=== PATIENT | female | born 1965 | race Caucasian/White ===

== ENCOUNTER → 2018-12-17 | Day surgery (SDC) | payer OTHER ==
[2018-12-13 14:05] LABS: BASOPHILS % 0.4 % (0.0-1.0); EOSINOPHILS # (AUTO) 0.2 (0.0-0.4); EOSINOPHILS % 1.7 % (0.0-6.0); HEMATOCRIT 40.9 % (34.2-44.1); HEMOGLOBIN 13.6 g/dL (12.0-16.0); LYMPHOCYTES # (AUTO) 2.7 (1.0-3.2); LYMPHOCYTES % 25.3 % (18.0-39.1); MEAN CORPUSCULAR HEMOGLOBIN 30.2 pg (28-32); MEAN CORPUSCULAR HGB CONC 33.3 g/dL (31-35); MEAN CORPUSCULAR VOLUME 90.7 fL (81-99); MONOCYTES # (AUTO) 0.8 (0.2-0.8); MONOCYTES % 7.3 % (4.4-11.3); NEUTROPHILS # (AUTO) 6.8 (2.1-6.9); NEUTROPHILS % 64.5 % (38.7-80.0); PLATELET COUNT 303 x10e3/uL (140-360); RED BLOOD COUNT 4.51 x10e6/uL (3.6-5.1); RED CELL DISTRIBUTION WIDTH 12.5 % (11.7-14.4)
[2018-12-13 14:20] LABS: ALANINE AMINOTRANSFERASE 20 IU/L (0-55); ALBUMIN 3.5 g/dL (3.5-5.0); ALKALINE PHOSPHATASE 71 IU/L (40-150); ANION GAP 10.7 mmol/L (8-16); BLOOD UREA NITROGEN 14 mg/dL (7-26); BUN/CREATININE RATIO 17 (6-25); CARBON DIOXIDE 27 mmol/L (22-29); CHLORIDE 103 mmol/L (98-107); CREATININE, SERUM 0.81 mg/dL (0.57-1.11); EST GLOMERULAR FILTRATION RATE > 60 ML/MIN (60-); GLUCOSE 96 mg/dL (74-118); POTASSIUM 4.7 mmol/L (3.5-5.1); SODIUM 136 mmol/L (136-145)
[~2018-12-17] VITALS: Ht 167.6 cm; Wt 78.5 kg
[~2018-12-17] MED LIST: ALPRAZOLAM 0.5 MG TAB ONE; DIPHENHYDRAMINE HCL 25 MG CAP ONE; FENTANYL CITRATE/PF 100MCG/2 ML INJ ONE; HEPARIN SOD (PORCINE) 1000 UNIT/ML 30ML ONE; HEPARIN SOD/SOD CHLORIDE 2,000 ML ONE; INDERAL XL80 MG PO; IOPAMIDOL 370 MG/ML 200 ML INFUS..BTL INJ ONE; LIDOCAINE HCL 2% LOCAL 20 ML VIAL ONE; MIDAZOLAM HCL 2 MG/2 ML VIAL ONE; NITROGLYCERIN/D5W 200 MCG/ML 250 ML ONE; SODIUM CHLORIDE 0.9% 1000ML 1,000 ML ONE; TOPAMAX25 MG PO; VERAPAMIL HCL 2.5 MG/ML 2 ML VIAL ONE; WELLBUTRIN SR150 MG PO
--- OUTSIDE RECORDS SUMMARY | 2018-12-17 06:32 | XMS REPORT ---
Author Author [facility] Address Unknown Phone Unavailable Care Team Providers Care Duplicate Maker Name Role Phone Unavailable Unavailable Payers Payer Name Policy Type Policy Number Effective Date Expiration Date Problems This patient has no known problems. Allergies, Adverse Reactions, Alerts This patient has no known allergies or adverse reactions. Medications This patient has no known medications. Encounters Start Date/Time End Date/Time Encounter Type Admission Type Attending [facility] Care Department Encounter ID 2018-12-05 19:33:00 2018-12-05 19:33:00 Emergency E [id number]
[2018-12-17 07:02] VITALS: BP 125/82
[2018-12-17 08:15] VITALS: BP 112/72
[2018-12-17 08:30] VITALS: BP 100/68
[2018-12-17 08:45] VITALS: BP 103/65
[2018-12-17 09:00] VITALS: BP 100/67
[2018-12-17 09:15] VITALS: BP 99/66
--- NOTE | 2018-12-17 12:48 | Operative Report ---
DATE OF PROCEDURE: 12/17/2018 SURGEON: Dereck Swift MD INDICATIONS: Coronary artery disease, abnormal stress test. PROCEDURES PERFORMED: 1. Left heart catheterization, selective coronary angiography, left ventriculography. 2. Deployment of right wrist TR band. COMPLICATIONS: None. RECOMMENDATIONS: Medical therapy. DESCRIPTION OF PROCEDURE: Access obtained in the right radial artery. A 5-Stateless sheath was placed. Coronary angiography demonstrated 50% stenosis in the proximal left anterior descending artery. Remaining coronary artery had mild coronary artery disease, less than 20% luminal stenosis. Excellent flow. No critical stenosis or occlusions. No intervention deemed necessary. LV ejection fraction 65%. LV end-diastolic pressure of 10. No gradient across the aortic valve on pullback. Right wrist guide sheath removed. TR band applied. The patient discharged home the same day. Dereck Swift MD KSB/MODL /[id number]
== END | disposition home or self-care (01) ==
LOC: CATH LAB 06:30
PROVIDERS: ATTEND Internal Medicine Interventional Cardiology
DX: I25.10 Atherosclerotic heart disease of native coronary artery without angina pectoris (principal); Z01.812 Encounter for preprocedural laboratory examination; R94.39 Abnormal result of other cardiovascular function study; I10 Essential (primary) hypertension; G43.919 Migraine, unspecified, intractable, without status migrainosus; Z83.3 Family history of diabetes mellitus; Z82.49 Family history of ischemic heart disease and other diseases of the circulatory system; Z82.3 Family history of stroke; E78.49 Other hyperlipidemia; G43.709 Chronic migraine without aura, not intractable, without status migrainosus
CPT/HCPCS: 36415; 80053; 85025; 93458; C1769; C1887; J1644; J2001; J2250; J3010; J7030; Q9967; 99152

== ENCOUNTER → 2020-09-01 | Outpatient (CLI) | payer OTHER ==
[~2020-09-01] MED LIST changes: -ALPRAZOLAM 0.5 MG TAB ONE; -DIPHENHYDRAMINE HCL 25 MG CAP ONE; -FENTANYL CITRATE/PF 100MCG/2 ML INJ ONE; -HEPARIN SOD (PORCINE) 1000 UNIT/ML 30ML ONE; -HEPARIN SOD/SOD CHLORIDE 2,000 ML ONE; -IOPAMIDOL 370 MG/ML 200 ML INFUS..BTL INJ ONE; -LIDOCAINE HCL 2% LOCAL 20 ML VIAL ONE; -MIDAZOLAM HCL 2 MG/2 ML VIAL ONE; -NITROGLYCERIN/D5W 200 MCG/ML 250 ML ONE; -SODIUM CHLORIDE 0.9% 1000ML 1,000 ML ONE; -VERAPAMIL HCL 2.5 MG/ML 2 ML VIAL ONE
== END ==
LOC: US 13:24
PROVIDERS: ATTEND Urology
DX: N28.1 Cyst of kidney, acquired (principal)
CPT/HCPCS: 76770; 76857; 78707; A9562

== ENCOUNTER 2020-10-17 14:45 | Emergency (ER) | payer OTHER ==
[~2020-10-17] VITALS: Ht 167.6 cm; Wt 77.2 kg
[2020-10-17] MEDS ORDERED: PROVENTIL HFA6.7 GM INH (15:18)
[2020-10-17] MEDS ORDERED: HYDROCHLOROTHIA25 MG PO (15:18)
[2020-10-17] MEDS ORDERED: METHYLPREDNISOLONE SOD SUCC 125 MG/2ML VIAL IV STA (15:20)
[2020-10-17] MEDS ORDERED: ALBUTEROL/IPRATROPIUM 3 ML NEB NEB STA (15:20)
[2020-10-17] MEDS ORDERED: METHYLPREDNISOLONE SOD SUCC 125 MG/2ML VIAL ONE (15:31)
[2020-10-17] MEDS ORDERED: ALBUTEROL/IPRATROPIUM 3 ML NEB ONE (15:32)
[2020-10-17] MEDS ORDERED: VENTOLIN HFA18 GM INH (16:07)
[2020-10-17] MEDS ORDERED: PREDNISONE20 MG PO (16:07)
== END 2020-10-17 16:20 | disposition home or self-care (01) ==
LOC: FSED 15:20
DX: R06.02 Shortness of breath (principal); R05 Cough; J40 Bronchitis, not specified as acute or chronic; Z77.098 Contact with and (suspected) exposure to other hazardous, chiefly nonmedicinal, chemicals; I10 Essential (primary) hypertension; F32.9 Major depressive disorder, single episode, unspecified
CPT/HCPCS: 71046; 80053; 81003; 82553; 84484; 85025; 93005; 96374; 99284; J2930